=== PATIENT | male | born 1990 | race Two or more races ===

== ENCOUNTER 2018-11-28 20:30 | Emergency (ER) | payer SELFPAY ==
[~2018-11-28] VITALS: Ht 185.4 cm; Wt 79.2 kg
[2018-11-28 21:14] VITALS: BP 145/82
== END 2018-11-28 22:18 | disposition home or self-care (01) ==
LOC: ED 22:07
DX: B35.3 Tinea pedis (principal)
CPT/HCPCS: 99283